=== PATIENT | male | born 1965 | race Caucasian/White ===

== ENCOUNTER 2016-05-28 16:38 | Emergency (ER) | payer MEDICAID ==
[~2016-05-28] VITALS: Ht 193 cm; Wt 100.0 kg
[2016-05-28 17:13] VITALS: BP 127/79
[2016-05-28] MEDS ORDERED: KETOROLAC TROMETHAMINE 30 MG/ML VIAL IVP ONE (17:15)
[2016-05-28] MEDS ORDERED: SODIUM CHLORIDE 0.9% 1,000 ML IV ONE (17:15)
[2016-05-28] MEDS ORDERED: METOCLOPRAMIDE HCL 5 MG/ML 2 ML VIAL IVP ONE (17:15)
== END 2016-05-28 17:27 | disposition home or self-care (01) ==
LOC: EMS 16:41
DX: Z76.0 Encounter for issue of repeat prescription (principal); F17.210 Nicotine dependence, cigarettes, uncomplicated
CPT/HCPCS: 99283; 99406

== ENCOUNTER 2016-05-30 08:53 | Emergency (ER) | payer MEDICAID, OTHER ==
[~2016-05-30] VITALS: Ht 193 cm; Wt 102.3 kg
[2016-05-30 09:55] VITALS: BP 122/79
== END 2016-05-30 11:00 | disposition left against medical advice (07) ==
LOC: EMS 08:55
DX: Z76.0 Encounter for issue of repeat prescription (principal); F17.210 Nicotine dependence, cigarettes, uncomplicated; Z88.0 Allergy status to penicillin; Z88.8 Allergy status to other drugs, medicaments and biological substances
CPT/HCPCS: 99281

== ENCOUNTER 2024-03-04 22:18 | Inpatient (IN) | payer OTHER ==
[~2024-03-04] VITALS: Ht 180.3 cm; Wt 76.5 kg
[2024-03-04] MEDS: DiphenhydrAMINE HCL 50 MG/ML VIAL IM ONE (22:37)
[2024-03-04] MEDS: LORazepam 2 MG/ML VIAL IM ONE (22:38)
[2024-03-04] MEDS: HALOPERIDOL LACTATE 5 MG/ML VIAL IM ONE (22:41)
[2024-03-05 00:11] LABS: BASOPHILS % (AUTO) 0.7 % (0.0-2.0); EOSINOPHILS % (AUTO) 0 % (1.0-6.0); HEMATOCRIT 37.6 % (41-53); HEMOGLOBIN 12.9 g/dL (13.5-17.5); LYMPHOCYTES # (AUTO) 0.9 K/uL (1.0-4.8); LYMPHOCYTES % (AUTO) 9.7 % (22.0-44.0); MEAN CORPUSCULAR HEMOGLOBIN 32.4 pg (26.0-34.0); MEAN CORPUSCULAR HGB CONC 34.4 G/dL (31.0-37.0); MEAN CORPUSCULAR VOLUME 94 fL (80-100); MONOCYTES # (AUTO) 0.8 K/uL (0.1-1.0); MONOCYTES % (AUTO) 8.9 % (2.0-9.0); NEUTROPHILS # (AUTO) 7.2 K/uL (1.8-7.7); NEUTROPHILS % (AUTO) 80.7 % (40.0-70.0); PLATELET COUNT (AUTO) 144 K/uL (150-450); RED BLOOD CELL COUNT(AUTO) 3.98 MIL/uL (4.50-5.90); RED CELL DISTRIBUTION WIDTH 14.1 % (11.5-14.5); WHITE BLOOD COUNT (AUTO) 8.9 K/uL (4.5-11.0)
[2024-03-05 00:20] LABS: ANION GAP 8 mmol/L (8-16); CALCIUM, TOTAL 8.2 mg/dL (8.8-10.5); CARBON DIOXIDE 27 mmol/L (22-29); CHLORIDE 101 mmol/L (98-107); CREATININE 0.98 mg/dL (0.60-1.30); GLOMERULAR FILTR. RATE CALC > 60 mL/min (>60); GLUCOSE,RANDOM 91 mg/dL (70-110); POTASSIUM 3.9 mmol/L (3.5-5.1); SODIUM SERUM 136 mmol/L (136-145); UREA NITROGEN, BLOOD 23 mg/dL (7-18)
[2024-03-05 00:22] LABS: COVID AG,FIA SOURCE NASAL SWAB
[2024-03-05 00:34] LABS: INFLUENZA TYPE B NEGATIVE FOR TYPE B (NEGATIVE)
[2024-03-05 00:35] LABS: SARS-COV2 (COVID) ANTIGEN,FIA Negative (Negative)
[2024-03-05 00:37] LABS: INFLUENZA TYPE A POSITIVE FOR TYPE A (NEGATIVE)
[2024-03-05 00:38] LABS: ALCOHOL, BLOOD (SERUM) < 3 mg/dL (0-10)
[2024-03-05] MEDS ORDERED: MAG HYDROX/ALUMINUM HYD/SIMETH ES 30 ML SUSPENSION UDCUP PO PRN (05:30)
[2024-03-05] MEDS ORDERED: ZOLPIDEM TARTRATE 10 MG TABLET PO PRN (05:30)
[2024-03-05] MEDS ORDERED: MAGNESIUM HYDROXIDE SUSPENSION 30 ML UDCUP PO PRN ×2 (05:30→12:45)
[2024-03-05] MEDS ORDERED: LOPERAMIDE HCL 2 MG CAPSULE PO PRN (05:30)
[2024-03-05] MEDS: DiphenhydrAMINE HCL 50 MG/ML VIAL IM ONE (10:59)
[2024-03-05] MEDS: LORazepam 2 MG/ML VIAL IM ONE (10:59)
[2024-03-05] MEDS: HALOPERIDOL LACTATE 5 MG/ML VIAL IM ONE (11:00)
[2024-03-05] MEDS: OSELTAMIVIR PHOSPHATE 75 MG CAPSULE PO SCH (12:30)
[2024-03-05] MEDS ORDERED: ACETAMINOPHEN 325 MG TABLET PO PRN (12:45)
[2024-03-05] MEDS ORDERED: ZOLPIDEM TARTRATE 5 MG TABLET PO PRN (12:45)
[2024-03-05 20:45] VITALS: BP 109/86; PULSE 89; RESP 20; O2SAT 95
[2024-03-05] MEDS: LevETIRAcetam 500 MG TABLET PO SCH (21:00)
[2024-03-05 21:52] VITALS: TEMP 99.3
[2024-03-05] MEDS: ACETAMINOPHEN 325 MG TABLET PO PRN (21:58)
[2024-03-06] MEDS: LORazepam 2 MG/ML VIAL IVP PRN (03:24)
[2024-03-06 05:07] VITALS: BP 124/72; PULSE 81; RESP 18; O2SAT 95
[2024-03-06] MEDS: FAMOTIDINE 20 MG TABLET PO SCH (09:17)
[2024-03-06] MEDS: HALOPERIDOL 5 MG TABLET PO PRN (10:38)
[2024-03-06] MEDS: LORazepam 2 MG TABLET PO PRN (10:38)
[2024-03-06] MEDS ORDERED: ESCI-8 PO (14:15)
[2024-03-06] MEDS ORDERED: QUET-28 PO (14:15)
[2024-03-06] MEDS ORDERED: GABA-1404 PO (14:29)
[2024-03-06] MEDS ORDERED: LEVE-71 PO (14:29)
[2024-03-06] MEDS ORDERED: ATOR40TA71 PO (14:29)
[2024-03-06 15:27] VITALS: BP 110/59; PULSE 88; RESP 18; TEMP 97.8; O2SAT 94
[2024-03-06] MEDS: ESCITALOPRAM OXALATE 10 MG TABLET PO SCH (16:08)
[2024-03-06] MEDS: QUEtiapine FUMARATE 200 MG ER TABLET PO SCH (20:39)
[2024-03-07 04:22] VITALS: BP 105/58; PULSE 89; RESP 18; TEMP 98.9; O2SAT 96
[2024-03-07 08:31] VITALS: BP 106/71; PULSE 93; RESP 20; TEMP 98; O2SAT 99
[2024-03-07] MEDS: NICOTINE 21 MG/24 HOUR PATCH TD SCH (15:07)
[2024-03-07 16:58] VITALS: BP 115/66; PULSE 87; RESP 20; TEMP 98.5; O2SAT 100
[2024-03-07 18:51] VITALS: BP 134/75; PULSE 84; RESP 18; TEMP 98.2; O2SAT 100
[2024-03-07 21:12] VITALS: BP 107/67; PULSE 70; RESP 18; TEMP 98.6; O2SAT 94
[2024-03-08 05:07] VITALS: BP 105/56; PULSE 77; RESP 18; TEMP 97.6; O2SAT 98
[2024-03-08 08:07] VITALS: BP 136/63; PULSE 68; RESP 18; TEMP 97.1; O2SAT 97
[2024-03-08 15:48] VITALS: BP 125/84; PULSE 65; RESP 18; TEMP 97.8; O2SAT 99
[2024-03-08 20:37] VITALS: BP 112/61; PULSE 74; RESP 18; TEMP 98.5; O2SAT 96
[2024-03-09 05:27] VITALS: BP 130/64; PULSE 74; RESP 18; TEMP 98.8; O2SAT 97
[2024-03-09 07:59] VITALS: BP 112/78; PULSE 88; RESP 18; TEMP 98.6; O2SAT 100
[2024-03-09 09:08] LABS: COVID AG,FIA SOURCE NASAL SWAB
[2024-03-09 09:52] LABS: SARS-COV2 (COVID) ANTIGEN,FIA Negative (Negative)
[2024-03-09 16:11] VITALS: BP 138/58; PULSE 73; RESP 18; TEMP 98.3; O2SAT 96
[2024-03-09 21:12] VITALS: BP 114/67; PULSE 59; RESP 18; TEMP 98.2; O2SAT 98
[2024-03-10 07:32] VITALS: BP 128/73; PULSE 61; RESP 18; TEMP 97.7; O2SAT 96
[2024-03-10] MEDS: BACITRACIN 28 GM OINTMENT TP SCH (15:35)
[2024-03-10 16:07] VITALS: BP 145/64; PULSE 67; RESP 18; TEMP 98.1; O2SAT 94
[2024-03-10 20:35] VITALS: BP 120/71; PULSE 66; RESP 18; TEMP 98; O2SAT 95
[2024-03-11 05:38] VITALS: BP 135/89; PULSE 75; RESP 18; TEMP 98.5; O2SAT 100
[2024-03-11 08:00] VITALS: BP 138/81; PULSE 76; RESP 18; TEMP 97; O2SAT 97
[2024-03-11 15:17] VITALS: BP 131/72; PULSE 63; RESP 18; TEMP 97.9; O2SAT 94
[2024-03-11 20:45] VITALS: BP 118/76; PULSE 63; RESP 20; TEMP 98.2; O2SAT 93
[2024-03-12 05:59] VITALS: BP 131/78; PULSE 64; RESP 20; O2SAT 97
[2024-03-12 07:28] VITALS: BP 126/76; PULSE 68; RESP 20; TEMP 98.4; O2SAT 97
[2024-03-12] MEDS: ATORVASTATIN CALCIUM 20 MG TABLET PO SCH (08:09)
[2024-03-12] MEDS: ASPIRIN 81 MG CHEWABLE TABLET PO SCH (08:10)
[2024-03-12 15:09] VITALS: BP 142/74; PULSE 94; RESP 20; TEMP 98.2; O2SAT 98
[2024-03-12 19:50] VITALS: BP 130/71; PULSE 74; RESP 20; TEMP 98; O2SAT 96
[2024-03-13 05:24] VITALS: BP 135/74; PULSE 80; RESP 19; TEMP 97.8; O2SAT 99
== END 2024-03-13 12:33 | disposition home or self-care (01) | DRG 113 ==
LOC: EMS 22:18 → EDBEDREQ 03-05 12:06 → EDBEDREQSVC 03-05 12:06 → EDH 03-05 12:33 → UNDOADMIN 03-05 13:13 → 4E 03-05 20:50 → EDH 03-05 20:50
PROVIDERS: ADMIT Internal Medicine; ATTEND Internal Medicine
PROC: GZ52ZZZ Individual Psychotherapy, Cognitive (ICD-10-PCS; principal; 2024-03-07)
DX: J10.1 Influenza due to other identified influenza virus with other respiratory manifestations (principal); F25.1 Schizoaffective disorder, depressive type; R45.851 Suicidal ideations; G40.909 Epilepsy, unspecified, not intractable, without status epilepticus; Z20.822 Contact with and (suspected) exposure to COVID-19; F17.210 Nicotine dependence, cigarettes, uncomplicated; R26.81 Unsteadiness on feet; E66.9 Obesity, unspecified; Z91.199 Patient's noncompliance with other medical treatment and regimen due to unspecified reason; Z93.3 Colostomy status; Z79.899 Other long term (current) drug therapy; Z88.0 Allergy status to penicillin; Z88.8 Allergy status to other drugs, medicaments and biological substances; Z68.23 Body mass index [BMI] 23.0-23.9, adult; Z59.00 Homelessness unspecified; Z86.73 Personal history of transient ischemic attack (TIA), and cerebral infarction without residual deficits
CPT/HCPCS: 80048; 85025; 87804; 97162; 97166; 97530; 97535; 99285; G0378; G0480; J1200; J1630; J2060